=== PATIENT | male | born 1980 | race Two or more races ===

== ENCOUNTER 2018-05-20 13:13 | Emergency (ER) | payer OTHER ==
[2018-05-20] MEDS ORDERED: ASPIRIN 81 MG TABLET, CHEWABLE PO ONE (13:58)
--- NOTE | 2018-05-20 13:59 | ER Document Report ---
ED Medical Screen (RME) - General Chief Complaint: Chest Pain > 30 Stated Complaint: LEFT SIDE RIB AND BACK PAIN Time Seen by Provider: 05/20/18 13:52 Notes: 38 years old male presents today with non-reproducible chest pain for the last 2 weeks, sometimes persistent sometimes it is on and off. Not associated with any nausea vomiting. But at times have a strong heartbeat almost like palpitation. Denies any diaphoresis. No smoking or alcohol habit. No significant family history that he knows of. TRAVEL OUTSIDE OF THE [place] IN LAST 30 DAYS: No Past Medical History - Social History Frequency of alcohol use: None Renal/ Medical History: Denies: Hx Peritoneal Dialysis Physical Exam - Vital signs Vitals: Temp Pulse Resp BP Pulse Ox 98.7 F 62 16 149/95 H 98 05/20/18 13:29 05/20/18 13:29 05/20/18 13:29 05/20/18 13:29 05/20/18 13:29 Course - Vital Signs Vital signs: Temp Pulse Resp BP Pulse Ox 98.7 F 62 16 149/95 H 98 05/20/18 13:29 05/20/18 13:29 05/20/18 13:29 05/20/18 13:29 05/20/18 13:29 Doctor's Discharge - Discharge Referrals: BARB ANDREW DO [Primary Care Provider] - Follow up as needed
[2018-05-20 14:38] LABS: ABSOLUTE BASOPHILS # (AUTO) 0.1 10^3/uL (0.0-0.2); ABSOLUTE EOSINOPHILS # (AUTO) 0.1 10^3/uL (0.0-0.6); ABSOLUTE LYMPHOCYTES (AUTO) 2.8 10^3/uL (0.5-4.7); ABSOLUTE MONOCYTES (AUTO) 0.6 10^3/uL (0.1-1.4); ABSOLUTE NEUT (AUTO) 3.6 10^3/uL (1.7-8.2); BASOPHILS % (AUTO) 0.7 % (0-2); EOSINOPHILS % (AUTO) 1.3 % (0-6); HEMATOCRIT 45.2 % (37.9-51.0); HEMOGLOBIN 15.3 g/dL (13.5-17.0); LYMPHOCYTES % (AUTO) 38.4 % (13-45); MEAN CORPUSCULAR HGB CONC 33.8 g/dL (32.0-36.0); MEAN CORPUSCULAR VOLUME 92 fl (80-97); MONOCYTES % (AUTO) 8.9 % (3-13); PLATELET COUNT 296 10^3/uL (150-450); RED BLOOD COUNT 4.92 10^6/uL (4.35-5.55); RED CELL DISTRIBUTION WIDTH 13.1 % (11.5-14.0); SEGMENTED NEUTROPHILS % (AUTO) 50.7 % (42-78); TOTAL CELLS COUNTED % (AUTO) 100 %; WHITE BLOOD COUNT 7.2 10^3/uL (4.0-10.5)
--- NOTE | 2018-05-20 14:56 | RADIOLOGY REPORT (SQ) ---
EXAM DESCRIPTION: CHEST SINGLE VIEW COMPLETED DATE/TIME: 05/20/2018 2:31 pm REASON FOR STUDY: Chest pain COMPARISON: None. EXAM PARAMETERS: NUMBER OF VIEWS: One view. TECHNIQUE: Single frontal radiographic view of the chest acquired. RADIATION DOSE: NA LIMITATIONS: None. FINDINGS: LUNGS AND PLEURA: No opacities, masses or pneumothorax. No pleural effusion. MEDIASTINUM AND HILAR STRUCTURES: No masses. Contour normal. HEART AND VASCULAR STRUCTURES: Heart normal in size. Normal vasculature. BONES: No acute findings. HARDWARE: None in the chest. OTHER: No other significant finding. IMPRESSION: NO ACUTE RADIOGRAPHIC FINDING IN THE CHEST. TECHNICAL DOCUMENTATION: JOB ID: [id number] [employer]- All Rights Reserved Reading location - IP/workstation name: [email or web address]
[2018-05-20 15:01] LABS: ALANINE AMINOTRANSFERASE 28 U/L (21-72); ALBUMIN 4.9 g/dL (3.5-5.0); ALKALINE PHOSPHATASE 52 U/L (38-126); ANION GAP 11 (5-19); ASPARTATE AMINO TRANSFERASE 29 U/L (17-59); BILIRUBIN,DIRECT 0.3 mg/dL (0.0-0.4); BILIRUBIN,TOTAL 0.6 mg/dL (0.2-1.3); BLOOD UREA NITROGEN 15 mg/dL (7-20); CALCIUM 10.2 mg/dL (8.4-10.2); CARBON DIOXIDE 26 mmol/L (22-30); CHLORIDE 102 mmol/L (98-107); CREATINE KINASE 270 U/L (55-170); GLUCOSE 101 mg/dL (75-110); POTASSIUM 4.7 mmol/L (3.6-5.0); SODIUM 139.1 mmol/L (137-145); TOTAL PROTEIN 7.9 g/dL (6.3-8.2)
[2018-05-20 15:17] LABS: TROPONIN I < 0.012 ng/mL
--- NOTE | 2018-05-20 16:02 | ER Document Report ---
ED Cardiac - General Mode of Arrival: Ambulatory Information source: Patient TRAVEL OUTSIDE OF THE [place] IN LAST 30 DAYS: No <ANIL SANTA - Last Filed: 05/21/18 00:01> <KARINA CORBETT - Last Filed: 05/21/18 00:04> - General Chief Complaint: Chest Pain > 30 Stated Complaint: LEFT SIDE RIB AND BACK PAIN Time Seen by Provider: 05/20/18 13:52 Notes: 38 y.o male presents to the ED with LT sided chest wall pain onset 9 days ago. Pt also reports a dull throbbing pain to his LT thoracic region. He describes his chest wall pain as a sharp, cramping pain to his ribs that is exacerbated with forceful movements and alleviated with stretching. He denies any worsening pain with walking but reports that he will feel the pain when he walks. Pt also complains of numbness to his LT hand that he noticed today when he woke up this morning. He also states that he has had some chills but denies any fevers. He denies the hand numbness being isolated to any fingers in particular. He denies any pain to his sternum, nausea, recent illnesses or any fall and injury that would cause his pain. 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 Pt denies any other medical issues. He reports a PFHx of father with [place] and stroke, first of which happened at the age of 70. Pt denies having any siblings with a hx of [place] or strokes. (ANIL SANTA) - Related Data Allergies/Adverse Reactions: No Known Allergies Allergy (Unverified 05/20/18 14:37) Past Medical History - General Information source: Patient - Social History Smoking Status: Never Smoker Chew tobacco use (# tins/day): No Frequency of alcohol use: Rare Drug Abuse: Marijuana - marijuana infused cocnut oil occasionally Patient has suicidal ideation: No Patient has homicidal ideation: No Renal/ Medical History: Denies: Hx Peritoneal Dialysis <ANIL SANTA - Last Filed: 05/21/18 00:01> - Social History Family History: CAD <KARINA CORBETT - Last Filed: 05/21/18 00:04> Review of Systems - Review of Systems Constitutional: See HPI, Chills. denies: Fever, Recent illness EENT: No symptoms reported Cardiovascular: See HPI, Chest pain - chest wall Respiratory: No symptoms reported Gastrointestinal: denies: Nausea Genitourinary: No symptoms reported Male Genitourinary: No symptoms reported Musculoskeletal: See HPI, Back pain - thoracic region Skin: No symptoms reported Hematologic/Lymphatic: No symptoms reported Neurological/Psychological: See HPI, Numbness - LUE -: Yes All other systems reviewed and negative <ANIL SANTA - Last Filed: 05/21/18 00:01> Physical Exam <ANIL SANTA - Last Filed: 05/21/18 00:01> <KARINA CORBETT - Last Filed: 05/21/18 00:04> - Vital signs Vitals: Temp Pulse Resp BP Pulse Ox 98.7 F 62 16 149/95 H 98 05/20/18 13:29 05/20/18 13:29 05/20/18 13:29 05/20/18 13:29 05/20/18 13:29 - Notes Notes: PHYSICAL EXAM GENERAL: Alert, interacts well. No acute distress. HEAD: Normocephalic, atraumatic. EYES: Pupils equal, round, and reactive to light. Extraocular movements intact. ENT: Oral mucosa moist, tongue midline. NECK: Full range of motion. Supple. Trachea midline. LUNGS: Clear to auscultation bilaterally, no wheezes, rales, or rhonchi. No respiratory distress. HEART: Regular rate and rhythm. No murmurs, gallops, or rubs. ABDOMEN: Soft, non-tender. Non-distended. Bowel sounds present in all 4 quadrants. No guarding, rebound, or rigidity. EXTREMITIES: Moves all 4 extremities spontaneously. No edema. Radial and dorsalis pedis pulses 2/4 bilaterally. No cyanosis. NEUROLOGICAL: Alert and oriented x3. Normal speech. PSYCH: Normal affect, normal mood. SKIN: Warm, dry, normal turgor. No rashes or lesions noted. (ANIL SANTA) Course - Laboratory Result Diagrams: 05/20/18 14:20 05/20/18 14:20 <ANIL SANTA - Last Filed: 05/21/18 00:01> - Laboratory Result Diagrams: 05/20/18 14:20 05/20/18 14:20 <KARINA CORBETT - Last Filed: 05/21/18 00:04> - Re-evaluation Re-evalutation: 05/20/18 20:08 CBC unremarkable, CMP unremarkable, cardiac enzymes negative x2, 2 EKGs are both nonischemic and are not evolving. Chest x-ray shows no acute process. Patient is low risk via heart score. Suspect musculoskeletal etiology for pain, patient recommended to take Naprosyn every 12 hours and use Robaxin for the next 3 days. Return to the emergency department for new or worsening symptoms. (KARINA CORBETT) - Vital Signs Vital signs: Temp Pulse Resp BP Pulse Ox 98.7 F 62 15 137/91 H 99 05/20/18 13:29 05/20/18 13:29 05/20/18 20:01 05/20/18 20:01 05/20/18 20:01 - Laboratory Laboratory results interpreted by me: 05/20/18 14:20 Creatine Kinase 270 H Discharge <ANIL SANTA - Last Filed: 05/21/18 00:01> <KARINA CORBETT - Last Filed: 05/21/18 00:04> - Discharge Clinical Impression: Musculoskeletal chest pain Condition: Stable Disposition: HOME, SELF-CARE Additional Instructions: Chest Pain of Unclear Cause The exact cause of your chest pain isn't clear. Fortunately, there is no evidence of a dangerous medical condition. Further testing may be required to find the source of the pain. Most often, we find that this pain is coming from the chest wall -- the muscles or rib joints in the chest. But chest pain can come from the lung and lung lining, the esophagus, the heart valves or heart lining, and even the stomach or gallbladder. Rest. Eat lightly until the pain is gone. We may prescribe medicine for pain and inflammation. You should call the physician immediately if the pain radiates to the shoulder, jaw or arms; if you start to run a fever or develop a cough; or if you develop shortness of breath, or other new or alarming symptoms. Please take the Naprosyn that you have at home 1-2 tablets every 12 hours for the next 3 days. Take this with food. Please also take the Robaxin as directed for the next 3 days. Please return to the emergency department for any new or concerning symptoms. Prescriptions: Methocarbamol [Robaxin 750 mg Tablet] 750 mg PO ASDIR PRN #40 tablet PRN Reason: Referrals: LILY OTERO MD [ACTIVE STAFF] - Follow up as needed Scribe Attestation: 05/21/18 00:04 I personally performed the services described in the documentation, reviewed and edited the documentation which was dictated to the scribe in my presence, and it accurately records my words and actions. (KARINA CORBETT) Scribe Documentation - Scribe Written by Janake:: Jeevan Vásquez 05/20/18 1604 acting as scribe for :: Enrique <ANIL SANTA - Last Filed: 05/21/18 00:01>
[2018-05-20 20:09] VITALS: BP 137/91
--- NOTE | 2018-05-20 21:14 | EKG REPORT ---
SEVERITY:- NORMAL ECG - SINUS RHYTHM : Confirmed by: Vladislav Huynh MD 20-May-2018 21:13:35
--- NOTE | 2018-05-20 21:14 | EKG REPORT ---
SEVERITY:- NORMAL ECG - SINUS RHYTHM : Confirmed by: Vladislav Huynh MD 20-May-2018 21:13:26
== END 2018-05-20 20:27 | disposition home or self-care (01) ==
LOC: ER 13:13
DX: R07.9 Chest pain, unspecified (principal); M54.9 Dorsalgia, unspecified
CPT/HCPCS: 36415; 71045; 80053; 82550; 82553; 84484; 85025; 93005; 93010; 99285

== ENCOUNTER 2018-09-27 18:27 | Emergency (ER) | payer OTHER ==
[2018-09-27] MEDS ORDERED: KETOROLAC TROMETHAMINE 60 MG/2 ML SDV IM ONE (19:17)
[2018-09-27] MEDS ORDERED: METOCLOPRAMIDE HCL INJ/PF 10 MG/2 ML SDV IM ONE (19:18)
--- NOTE | 2018-09-27 19:37 | ER Document Report ---
ED Medical Screen (RME) - General Chief Complaint: Headache Stated Complaint: HEAD PAIN Time Seen by Provider: 09/27/18 19:04 TRAVEL OUTSIDE OF THE [place] IN LAST 30 DAYS: No - HPI Patient complains to provider of: Headache - Related Data Allergies/Adverse Reactions: No Known Allergies Allergy (Verified 09/27/18 18:28) Past Medical History Renal/ Medical History: Denies: Hx Peritoneal Dialysis Physical Exam - Vital signs Vitals: Temp Pulse Resp BP Pulse Ox 98.8 F 71 16 130/76 H 95 09/27/18 18:43 09/27/18 18:43 09/27/18 18:43 09/27/18 18:43 09/27/18 18:43 Course - Re-evaluation Re-evalutation: 09/27/18 20:19 Here is a 38-year-old man with a bizarre constellation of medical problems complaining of multiple problems in his cervical spine as well as thoracic and lumbar spine with MRIs which show very limited pathology. Is complaining about pain in the head in the left posterior which is worse when breathing. He is like to pursue a workup including a CT of the head. Will obtain CT of the head administer analgesia. I have seen and evaluated this patient in rapid screening examination. I have initiated a workup. I plan for this patient undergo further evaluation and disposition determination by secondary provider. - Vital Signs Vital signs: Temp Pulse Resp BP Pulse Ox 98.8 F 71 16 130/76 H 95 09/27/18 18:43 09/27/18 18:43 09/27/18 18:43 09/27/18 18:43 09/27/18 18:43 Doctor's Discharge - Discharge Referrals: NIGHAT PEREZ MD [Primary Care Provider] - Follow up as needed
--- NOTE | 2018-09-27 20:04 | RADIOLOGY REPORT (SQ) ---
EXAM DESCRIPTION: CT HEAD WITHOUT COMPLETED DATE/TIME: 09/27/2018 7:54 pm REASON FOR STUDY: headache, left sided, posterior COMPARISON: None. TECHNIQUE: Axial images acquired through the brain without intravenous contrast. Images reviewed wi th bone, brain and subdural windows. Additional sagittal and coronal reconstructions were generated. Images stored on PACS. All CT scanners at this facility use dose modulation, iterative reconstruction, and/or weight based d osing when appropriate to reduce radiation dose to as low as reasonably achievable (ALARA). [facility]: Dose Right [facility]: CareDose [facility]: Dose Right [facility]: Teradose 4D [facility]: Smart Silk RADIATION DOSE: CT Rad equipment meets quality standard of care and radiation dose reduction techniq ues were employed. CTDIvol: 53.2 mGy. DLP: 964 mGy-cm. mGy. LIMITATIONS: None. FINDINGS: VENTRICLES: Normal size and contour. CEREBRUM: No masses. No hemorrhage. No midline shift. No evidence for acute infarction. Normal gra y/white matter differentiation. No areas of low density in the white matter. CEREBELLUM: No masses. No hemorrhage. No alteration of density. No evidence for acute infarction. EXTRAAXIAL SPACES: No fluid collections. No masses. ORBITS AND GLOBE: No intra- or extraconal masses. Normal contour of globe without masses. CALVARIUM: No fracture. PARANASAL SINUSES: No fluid or mucosal thickening. SOFT TISSUES: No mass or hematoma. OTHER: No other significant finding. IMPRESSION: NORMAL BRAIN CT WITHOUT CONTRAST. EVIDENCE OF ACUTE STROKE: NO. COMMENT: Quality ID # [id number]: Final reports with documentation of one or more dose reduction techniques (e.g., Automated exposure control, adjustment of the mA and/or kV according to patient size, use of iterative reconstruction technique) TECHNICAL DOCUMENTATION: JOB ID: [id number] [employer]- All Rights Reserved Reading location - IP/workstation name: [email or web address]
--- NOTE | 2018-09-27 22:07 | ER Document Report ---
ED Headache - General Chief Complaint: Headache Stated Complaint: HEAD PAIN Time Seen by Provider: 09/27/18 19:04 Notes: Patient is a 38-year-old male presents to the emergency department complaining of generalized left occipital "burning pain" intermittently for the last 2 weeks. Patient states the pain comes and goes started this evening and was increasing which is why he presents to the emergency room. Patient states he has multiple issues with his cervical, thoracic, lumbar spine. States he had degenerative disc disease and was recently told to follow-up with pain management for his cervical spine chronic pain. Patient denies any fall, recent injury to his head or neck. States the pain increases when he takes a deep inspiration. Past medical history: Hypertension, degenerative disc disease Medications: Lisinopril, propranolol, naproxen, melatonin Allergies: None TRAVEL OUTSIDE OF THE [place] IN LAST 30 DAYS: No - Related Data Allergies/Adverse Reactions: No Known Allergies Allergy (Verified 09/27/18 18:28) Past Medical History - General Information source: Patient - Social History Smoking Status: Never Smoker Frequency of alcohol use: None Drug Abuse: Marijuana Family History: CAD Patient has suicidal ideation: No Patient has homicidal ideation: No - Past Medical History Cardiac Medical History: Reports: Hx Hypertension Neurological Medical History: Reports: Hx Migraine Renal/ Medical History: Denies: Hx Peritoneal Dialysis Psychiatric Medical History: Reports: Hx Bipolar Disorder, Hx Depression - Anxiety Past Surgical History: Reports: Hx Genitourinary Surgery - circumcision 2003, Hx Orthopedic Surgery - R toe bunionectomy Review of Systems - Review of Systems Constitutional: No symptoms reported EENT: No symptoms reported Cardiovascular: No symptoms reported Respiratory: No symptoms reported Gastrointestinal: No symptoms reported Genitourinary: No symptoms reported Male Genitourinary: No symptoms reported Musculoskeletal: No symptoms reported Skin: No symptoms reported Hematologic/Lymphatic: No symptoms reported Neurological/Psychological: See HPI Physical Exam - Vital signs Vitals: Temp Pulse Resp BP Pulse Ox 98.8 F 71 16 130/76 H 95 09/27/18 18:43 09/27/18 18:43 09/27/18 18:43 09/27/18 18:43 09/27/18 18:43 - Notes Notes: GENERAL: Alert, interacts well. No acute distress. HEAD: Normocephalic, atraumatic. Patient's pain is left occiput radiating to left paraspinal, does not increase or decrease upon palpation, no ecchymosis, erythema, swelling noted. EYES: Pupils equal, round, and reactive to light. Extraocular movements intact. ENT: Oral mucosa moist, tongue midline. NECK: Full range of motion. Supple. Trachea midline. LUNGS: Clear to auscultation bilaterally, no wheezes, rales, or rhonchi. No respiratory distress. HEART: Regular rate and rhythm. No murmur ABDOMEN: Soft, non-tender. Non-distended. Bowel sounds present in all 4 quadrants. EXTREMITIES: Moves all 4 extremities spontaneously. No edema, normal radial and dorsalis pedis pulses bilaterally. No cyanosis. 5 out of 5 strength all 4 extremities BACK: no cervical, thoracic, lumbar midline tenderness. No saddle anesthesia, no rmal distal neurovascular exam. NEUROLOGICAL: Alert and oriented x3. Normal speech. cranial nerves II through XII grossly intact. finger to nose test within normal limits. PSYCH: Normal affect, normal mood. SKIN: Warm, dry, normal turgor. No rashes or lesions noted. Course - Re-evaluation Re-evalutation: [facility] provider has ordered a CT imaging of the patient's head which was already performed when I started care of the patient. Patient CT shows no signs of bleeding, intracranial swelling or skull fracture. Discussed this at length with patient at bedside. Patient states medications in the emergency room have helped his generalized head pain states he still has "a little bit of pain." Discussed where patient's pain is in his left occiput radiating down the cervical paraspinal region this could be muscular in nature. Discussed use of heat and Flexeril for home. Discussed Flexeril's drowsy component so I will not give it to him in the emergency room. Patient states he has an appointment with pain management after [place] and he will continue with that appointment. Patient's neurological exam is within normal limits no deficits noted. Patient is afebrile, non-tachycardic, states medications have helped his headache in the emergency room, patient stable for discharge. - Vital Signs Vital signs: Temp Pulse Resp BP Pulse Ox 98.2 F 63 16 119/70 99 09/27/18 22:50 09/27/18 22:50 09/27/18 22:50 09/27/18 22:50 09/27/18 22:50 Discharge - Discharge Clinical Impression: Headache Qualifiers: Headache type: unspecified Headache chronicity pattern: chronic headache Intractability: not intractable Qualified Code(s): R51 - Headache Condition: Stable Disposition: HOME, SELF-CARE Instructions: Headache ([facility]) Additional Instructions: As we discussed you have been seen and treated in the emergency department for headache your CT scan shows no signs of bleeding, stroke, fractures in your skull. You should take prescription medications as prescribed. Please continue to take your home medications as prescribed. Please also continue to follow-up with pain management for inevitable care of your cervical spine and headaches. Please return to the emergency room for any other concerning symptoms. Prescriptions: Cyclobenzaprine HCl [Flexeril 10 mg Tablet] 10 mg PO TIDP PRN #15 tab PRN Reason: Referrals: NIGHAT PEREZ MD [Primary Care Provider] - Follow up as needed
[2018-09-27 22:50] VITALS: BP 119/70
== END 2018-09-27 22:50 | disposition home or self-care (01) ==
LOC: ER 18:27
DX: R51 Headache (principal); I10 Essential (primary) hypertension
CPT/HCPCS: 99284; 96372; 70450; J1885; J2765

== ENCOUNTER 2019-02-24 02:52 | Emergency (ER) | payer OTHER ==
[2019-02-24 03:00] VITALS: BP 161/81
== END 2019-02-24 03:15 | disposition left against medical advice (07) ==
LOC: ER 02:52
DX: Z53.21 Procedure and treatment not carried out due to patient leaving prior to being seen by health care provider (principal); J02.9 Acute pharyngitis, unspecified